=== PATIENT | female | born 1965 | race Caucasian/White ===

== ENCOUNTER 2017-08-15 06:09 | Day surgery (SDC) | payer SELFPAY ==
[2017-08-14 14:45] VITALS: BMI 22.0
[2017-08-15] MEDS ORDERED: LIDOCAINE HCL 1%, 10 MG/ML (20ML VIAL) ONE (07:26)
[2017-08-15] MEDS ORDERED: EPINEPHrine/PF 1 MG/1 ML (1:1,000) AMPULE ONE (07:26)
[2017-08-15] MEDS ORDERED: LIDOCAINE 1%/EPI 1:100000 (20 ML MULTI DOSE VIAL) ONE (07:50)
[2017-08-15] MEDS ORDERED: PROPOFOL 20 ML ONE ×2 (07:59)
[2017-08-15] MEDS ORDERED: MIDAZOLAM HCL 2 MG/2 ML SINGLE DOSE VIAL ONE (07:59)
[2017-08-15] MEDS ORDERED: SUCCINYLCHOLINE CHLORIDE 200 MG/10 ML VIAL ONE (08:00)
[2017-08-15] MEDS ORDERED: DESFLURANE GAS 240 ML BOTTLE IH ONE (08:02)
--- NOTE | 2017-08-15 08:04 | OP ---
Operative Note - Note: Operative Date: 08/15/17 Pre-Operative Diagnosis: Cosmetic deformity of arms Operation: Bilateral brachioplasty Post-Operative Diagnosis: Same as Pre-op Surgeon: Mak Trevizo Anesthesia: General Specimens Removed: skin of axilla Estimated Blood Loss (mls): 25
[2017-08-15] MEDS ORDERED: ceFAZolin SODIUM 1 GM VIAL IVPB ONE (08:10)
[2017-08-15] MEDS ORDERED: DEXAMETHASONE SOD PHOSPHATE 4 MG/1 ML VIAL ONE (08:22)
[2017-08-15] MEDS ORDERED: LIDOCAINE HCL/PF 2% SDV 5ML VIAL ONE (08:22)
[2017-08-15] MEDS ORDERED: ceFAZolin SODIUM 1 GM VIAL ONE (08:22)
[2017-08-15] MEDS ORDERED: LIDOCAINE 1%/EPI 1:100000 (50 ML MULTI DOSE VIAL) INF ONE ×2 (08:37→08:41)
[2017-08-15] MEDS ORDERED: ONDANSETRON 4 MG/2 ML VIAL IVPUSH PRN (08:55)
[2017-08-15] MEDS ORDERED: oxyCODONE HCL 5 MG TABLET PO PRN ×2 (08:55)
[2017-08-15] MEDS ORDERED: ACETAMINOPHEN INJECTION 100 ML IVPB ONE (08:58)
[2017-08-15] MEDS ORDERED: LACTATED RINGERS SOLUTION 1,000 ML IV SCH (09:00)
[2017-08-15 12:14] VITALS: BP 146/78; PULSE 61; TEMP 98.5
--- NOTE | 2017-08-16 08:03 | OP ---
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 OPERATIVE PROCEDURE: Bilateral short-scar axillary brachioplasty. OPERATIVE INDICATIONS: The patient is a 52-year-old woman who underwent approximately 75 pounds of weight loss and was unhappy with her hanging skin in the axillary region of the upper arms. I had multiple discussions with her preoperatively about brachioplasty, the long incision on the arm versus the one within the axilla, and she desired only a small amount of resection. Decision was made after much discussion with a short-scar brachioplasty in the axillary region extending from the midpoint medially to laterally, which is marked in a standing position preoperatively with the patients knowledge, and approximately 4.5 to 5 cm of excision of skin in elliptical fashion was carried out. The patient understood the implications of the scar ultimately and was accepting. All questions were asked and answered. OPERATIVE PROCEDURE IN DETAIL: The patient was taken to the operating room, and after the induction of general anesthesia in supine position, both arms were prepped and draped from the chest wall breast out to the area below the elbow and coverings were placed over the hand and forearm in a sterile fashion on a sterile arm board. Both arms were prepped and draped in the same fashion. The intravenous and anesthetic were administered through the intravenous in the foot. At this point, 0.5% local lidocaine anesthesia with 1:200,000 epinephrine was infiltrated into the skin and subcutaneous tissue of the marked region for excision, and then, 10 minutes of hemostasis and anesthesia was carried out. At this point, attention was turned to the right axilla. Incision was made in an elliptical fashion according to the pattern down through the skin into the dermis of the right axilla. Excision of the skin and dermis was excised using the electrocautery removing only skin and dermis in the medial 2/3 of the arm, and then in a lateral 1/3, a small amount of subcutaneous tissue and fat was removed in order to remove this excess. All vital structures were protected, and no deep structures were visualized. Hemostasis was meticulously obtained throughout, and then, the patient was tailor-tacked closed using the stapler. The exact same procedure was carried out symmetrically on the opposite side. The right axilla required a slightly longer excision because of some excess skin on the right lateral posterior portion, but only approximately 2 cm longer. At this point, after excision of both sides, the wounds were advanced and closed upon themselves using 3-0 Vicryl suture on the deep dermis with multiple sutures placed for wound, and then, a second suture of 3-0 V-Loc running subcuticular suture was carried out on the incision itself. Good symmetry was seen on both sides of the patient. Wounds were dressed with Dermabond and Steri-Strips. A compression dressing and a long-arm compression garment were placed on the patient before she was awakened. She was awakened, extubated, and transferred to the recovery room in satisfactory condition. She tolerated the procedure well. SHARMAINE TREVIZO M.D. [id number]
== END 2017-08-15 12:40 | disposition home or self-care (01) ==
LOC: JASU-SURG 06:09
PROVIDERS: ATTEND Plastic Surgery
PROC: 0J0D0ZZ Alteration of Right Upper Arm Subcutaneous Tissue and Fascia, Open Approach (ICD-10-PCS; 2017-08-15)
PROC: 0J0F0ZZ Alteration of Left Upper Arm Subcutaneous Tissue and Fascia, Open Approach (ICD-10-PCS; principal; 2017-08-15 08:00)
DX: Z41.1 Encounter for cosmetic surgery (principal); M21.822 Other specified acquired deformities of left upper arm; M21.821 Other specified acquired deformities of right upper arm
CPT/HCPCS: 94760; J0131